=== PATIENT | male | born 2000 | race Two or more races ===

== ENCOUNTER 2024-11-11 07:50 | Day surgery (SDC) | payer OTHER ==
[~2024-11-11] VITALS: Ht 180.3 cm; Wt 68.0 kg
[2024-11-11] MEDS: OXYMETAZOLINE 0.05% NASAL SPRAY As Ordered ONE (07:38)
[2024-11-11] MEDS ORDERED: MIDAZOLAM INJ 2 MG/2 ML VIAL As Ordered ONE (08:18)
[2024-11-11] MEDS ORDERED: LIDOCAINE 2% 100 MG/5 ML SDV (FOR ANES.) As Ordered ONE (08:27)
[2024-11-11] MEDS ORDERED: ROCURONIUM BROMIDE 50MG/5ML VIAL As Ordered ONE (08:28)
[2024-11-11] MEDS ORDERED: SUGAMMADEX SODIUM 500 MG/5 ML VIAL As Ordered ONE (08:28)
[2024-11-11] MEDS ORDERED: LR 1,000 ML IV SCH (08:30)
[2024-11-11] MEDS ORDERED: dexAMETHasone 4 MG/ML 1 ML VIAL As Ordered ONE (08:31)
[2024-11-11] MEDS ORDERED: ONDANSETRON 4MG 2ML VIAL As Ordered ONE (08:32)
[2024-11-11] MEDS ORDERED: ACETAMINOPHEN 1000MG/100ML IV BAG As Ordered ONE (09:38)
[2024-11-11] MEDS ORDERED: PHENYLephrine 500MCG 5ML (100MCG/ML) SYRINGE As Ordered ONE (09:39)
[2024-11-11] MEDS: LIDOCAINE W/EPINEPHrine 1% 20 ML VIAL As Ordered ONE (09:42)
[2024-11-11] MEDS ORDERED: HYDROMORPHONE HCL 0.5 MG/0.5 ML SYRINGE IV PRN (10:15)
[2024-11-11 12:20] VITALS: BP 152/87; TEMP 97.7; O2SAT 100
== END 2024-11-11 12:28 | disposition home or self-care (01) ==
LOC: M SDC 07:50
PROVIDERS: ATTEND Otolaryngology
DX: J34.2 Deviated nasal septum (principal); J34.89 Other specified disorders of nose and nasal sinuses; Z91.013 Allergy to seafood
CPT/HCPCS: 30520; J0131; J1100; J2250; J2371; J2405; J3010